=== PATIENT | female | born 1995 | race Caucasian/White ===

== ENCOUNTER → 2024-07-16 08:09 | Outpatient (BNVA) | payer OTHER, SELFPAY | PROVIDERS: Visit Provider Physician Assistant Medical | DX: S60.011A Contusion of right thumb without damage to nail, initial encounter (principal); S60.211A Contusion of right wrist, initial encounter; Y00.XXXA Assault by blunt object, initial encounter | CPT/HCPCS: 73140; 99203 ==

== ENCOUNTER → 2024-07-30 14:19 | Outpatient (BNVA) | payer OTHER, SELFPAY | PROVIDERS: Visit Provider Physician Assistant | DX: S60.011D Contusion of right thumb without damage to nail, subsequent encounter (principal); Y00.XXXD Assault by blunt object, subsequent encounter | CPT/HCPCS: 99213 ==

== ENCOUNTER → 2024-08-21 15:07 | Outpatient (BNVA) | payer OTHER, SELFPAY | PROVIDERS: PCP Physician Assistant; Visit Provider Physician Assistant | DX: R25.2 Cramp and spasm (principal); S60.011D Contusion of right thumb without damage to nail, subsequent encounter; Y00.XXXD Assault by blunt object, subsequent encounter | CPT/HCPCS: 99213 ==

== ENCOUNTER → 2024-09-11 14:48 | Outpatient (BNVA) | payer OTHER, SELFPAY | PROVIDERS: PCP Physician Assistant; Visit Provider Physician Assistant | DX: M70.841 Other soft tissue disorders related to use, overuse and pressure, right hand (principal); S60.011D Contusion of right thumb without damage to nail, subsequent encounter; Y00.XXXD Assault by blunt object, subsequent encounter; Z02.79 Encounter for issue of other medical certificate | CPT/HCPCS: 99214 ==

== ENCOUNTER 2024-10-16 08:04 | Outpatient (RCR) | payer OTHER, BC, SELFPAY ==
--- NOTE | 2024-08-14 12:50 | MHC.OT.OEV ---
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 X-rays indicated no acute fracture but a Corticated ossification along the volar base of the distal phalanx measuring up to 0.2 cm which could represent an accessory ossicle versus remote, unfused fracture fragment . She was seen at [facility] and was placed in a thumb spica for 2 weeks. She reports 0/10 pain but will feel discomfort and pain after prolonged periods of activity with difficulty with weightbearing activities. She denies numbness/ tingling. 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 She lives with her fiance and his grandmother. She enjoys playing video games, painting/drawing, baking and going to the gym. Significant Medical History: Precautions/Contraindications: Patient Goals: Hand Dominance: Right Observations: QuickDASH Score: 18.2 Prior Level of Function and Occupation Self Care, Employment, Leisure: (I)ADLs/IADLs school age program teacher video games, drawing/painting, going to the gym Living Situation, Family and/or Social Support: Lives with obi Current Level of Function and Occupation Self Care, Employment, Leisure: (I)ADLs/IADLs Sleep: (I) Driving: (I) Vision: Balance: Pain Assessment Pain Score: Pain Scale Used: Pain Location and Description: painful after prolonged periods of time Aggravating Factors: Alleviating Factors: Skin and Soft Tissue Assessment Skin and Soft Tissue: Comments: skin intact, no bruising or redness Nerve assessment Ulnar Nerve: Median Nerve: Radial Nerve: Comments: Sensory Assessment Temperature: Light Touch: Proprioception: Vibration: Comments: Edema Assessment Upper Extremity: Lower Extremity: Comments: WFL Dexterity Assessment Dexterity: Comments: WFL Special Tests Comments: (-)Phalen's (-) Finkelstien's AROM(PROM) Strength Cervical Cervical Flexion: Cervical Extension: Cervical Lateral Flexion: Cervical Rotation: Comments: Shoulder Flexion: Extension: Abduction: Internal Rotation: External Rotation: Comments: WFL Flexion: Extension: Abduction: Internal Rotation: External Rotation: Comments: WFL Elbow Flexion: Extension: Pronation: Supination: Comments: WFL Flexion: Extension: Pronation: Supination: Comments: WFL Wrist Flexion: Extension: Ulnar Deviation: Radial Deviation: Comments: WFL Flexion: Extension: Ulnar Deviation: Radial Deviation: Comments: WFL Thumb Thumb CMC Flexion: Thumb MCP Flexion: Thumb IP Flexion: Radial Abduction: Palmar Abduction: [place] ([place] 0-10): Comments: WFL Digits Index MCP: PIP: DIP: Long MCP: PIP: DIP: Ring MCP: PIP: DIP: Small MCP: PIP: DIP: Comments: WFL Gross Grasp: (R)52lbs.; (R)60lbs. Lateral Pinch: 12 Two-Point Pinch: 7 Three-Jaw Weston: 8 Comments: Patient Education Primary Language: Animal Treatment Investigator Required: Current Knowledge: Teaching Method: Education Needs Identified on Evaluation: How did patient/family demonstrate learning? Barriers to Learning: Readiness for Learning: Who was educated? Comments: Plan of Care Assessment: Based on initial evaluation patient presents with pain and tenderness of the (R)thumb and impaired strength. Provocative testing was (-) for Phalen's and Allison's test Test. Her ROM is WFLs. Quick DASH= 18.2% indicating patient's perception of UE impairment during self care tasks. Due to the documented impairments it is recommended that patient receive a short course of therapy in order to decrease pain, increase strength and maintain joint integrity for patient to achieve her PLOF. Thank your for your referral. STG Duration: 2 week Short Term Goals: Patient will increase (R)tallow maker strength by at least 5lbs. Patient will be (I) with self massage techniques Patient will repot 0/10 pain during activities LTG Duration: 4 weeks Certified Scrub Tech Goals: Patient will be (I) with HEP. Frequency and Duration: The patient will be seen 2x a week for 4 weeks Treatment Plan: Therapeutic Exercise Therapeutic Activity Home Exercise Program Patient Education Edema Control ADL Training Ultrasound NMES Iontophoresis Paraffin Fluidotherapy MHP Cold Packs Joint Mobilization Soft Tissue Mobilization Kinesiotaping Other (see comments) Skilled OT eval and treat Electronically Signed By: Germania Martell OTR/L, CLT Reviewed/agree with student documentation: Therapist: Please sign and return to therapist, Thank you for your referral.
--- NOTE | 2024-10-17 11:09 | MHC.OT.DC ---
[address] [phone] F: [phone] Occupational Therapy Discharge Note Patient Name: Kaleigh Soto Provider: Priscilla Holden Diagnosis: (R)Thumb injury Date of Surgery: Date of Evaluation: 08/14/24 Date of Discharge: Treatments to Date: 10 Cancellations to Date: No Shows to Date: Discharge Status: Achieved Goals Improved Function Independent with HEP Discharge Summary: Patient is d/c'd from skilled OT as patient has achieved all of her goals and is (I) with her HEP. Patient was a pleasure to work with, than you for your referral. Electronically Signed By: Germania Martell OTR/Lashon, CLT Reviewed/agree with student documentation: Therapist: Please Sign and return to therapist, thank you for your referral.
== END 2024-10-17 11:10 | disposition home or self-care (01) ==
LOC: HO.OT 08:04
PROVIDERS: PCP Physician Assistant; Visit Provider Physician Assistant
DX: S69.91XA Unspecified injury of right wrist, hand and finger(s), initial encounter (principal)
CPT/HCPCS: 97110; 97140; 97165; 97535